=== PATIENT | male | born 1940 | race Caucasian/White ===

== ENCOUNTER 2021-09-18 11:53 | Emergency (ER) | payer MEDICARE ==
[~2021-09-18] VITALS: Wt 79.4 kg
== END 2021-09-18 15:15 | disposition home or self-care (01) ==
LOC: ED 11:53
DX: S76.912A Strain of unspecified muscles, fascia and tendons at thigh level, left thigh, initial encounter (principal); S00.83XA Contusion of other part of head, initial encounter; W18.30XA Fall on same level, unspecified, initial encounter; Y93.89 Activity, other specified; Y92.89 Other specified places as the place of occurrence of the external cause; Y99.9 Unspecified external cause status